=== PATIENT | female | born 1955 | race Native Hawaiian/Other Pacific Islander ===

== ENCOUNTER 2017-11-20 16:21 | Outpatient (CLI) | payer BC ==
[2017-11-20 16:53] LABS: PLATELET COUNT 208 K/uL (152-353)
[2017-11-20 16:56] LABS: SODIUM 136 mmol/L (136-145)
== END 2017-11-20 19:42 | disposition home or self-care (01) ==
LOC: LAB 16:21
DX: M86.142 Other acute osteomyelitis, left hand (principal); Z51.81 Encounter for therapeutic drug level monitoring; Z79.2 Long term (current) use of antibiotics
CPT/HCPCS: 80053; 82550; 85027; 85651; 86140